=== PATIENT | male | born 1970 | race Caucasian/White ===

== ENCOUNTER → 2017-03-04 | Outpatient (REF) | payer BC ==
[2017-03-04 11:23] LABS: CHOLESTEROL LEVEL 231 MG/DL (<200); GLUCOSE, FASTING 108 MG/DL (70-105); TRIGLYCERIDES LEVEL 172 MG/DL (<150)
== END ==
LOC: M SFHCPLAZ 09:02
DX: Z13.1 Encounter for screening for diabetes mellitus (principal); Z13.220 Encounter for screening for lipoid disorders
CPT/HCPCS: 82947

== ENCOUNTER → 2017-03-11 | Outpatient (REF) | payer BC ==
[2017-03-11 12:18] LABS: ESTIMATED AVERAGE GLUCOSE 117 MG/DL (60-110); HEMOGLOBIN A1c 5.7 %
[2017-03-11 12:39] LABS: ALBUMIN 3.8 GM/DL (3.2-5.2); ALBUMIN/GLOBULIN RATIO 1.12 (1.00-1.93); ALKALINE PHOSPHATASE 87 U/L (45-117); ALT/SGPT 59 U/L (12-78); AST/SGOT 27 U/L (7-37); BILIRUBIN,DIRECT 0.1 MG/DL (0.0-0.2); BILIRUBIN,TOTAL 0.6 MG/DL (0.2-1.0); TOTAL PROTEIN 7.2 GM/DL (6.4-8.2)
== END ==
LOC: M SFHCPLAZ 09:07
DX: R73.01 Impaired fasting glucose (principal); E78.2 Mixed hyperlipidemia
CPT/HCPCS: 80076

== ENCOUNTER 2017-03-22 13:31 | Emergency (ER) | payer BC ==
[2017-03-22 16:55] LABS: BASO # 0.1 10^3/uL (0.0-0.2); BASO % 0.7 % (0.0-1.0); EOS # 0.4 10^3/uL (0.0-0.50); HEMATOCRIT 45.7 % (42.0-52.0); HEMOGLOBIN 15.9 g/dl (14.0-18.0); IMMATURE GRANULOCYTE % 0.2 % (0-0); LYMPH # 2.4 10^3/uL (1.5-4.5); LYMPH % 27.3 % (24.0-44.0); MEAN CORPUSCULAR HEMOGLOBIN 30.2 pg (27.0-33.0); MEAN CORPUSCULAR HGB CONC 34.8 g/dl (32.0-36.5); MEAN CORPUSCULAR VOLUME 86.7 fl (80.0-96.0); MONO # 0.7 10^3/uL (0.0-0.8); MONO % 7.8 % (0.0-5.0); NEUTROPHILS # 5.1 10^3/uL (1.8-7.7); PLATELET COUNT, AUTOMATED 272 10^3/uL (150-450); RED BLOOD COUNT 5.27 10^6/uL (4.30-6.10); RED CELL DISTRIBUTION WIDTH 12.1 % (11.5-14.5); WHITE BLOOD COUNT 8.6 10^3/uL (4.0-10.0)
[2017-03-22] MEDS: NS 1,000 ML IV (17:00)
[2017-03-22] MEDS: ONDANSETRON 4MG/2ML VIAL (J2405) IV (17:01)
[2017-03-22] MEDS: MORPHINE 4 MG/ML 1ML SYRINGE IV (17:01)
[2017-03-22 17:13] LABS: KETONE, URINE AUTO RFX NEGATIVE (NEGATIVE); LEUKOCYTE ESTERASE UR AUTO RFX NEGATIVE (NEGATIVE); NITRITE, URINE AUTO RFX NEGATIVE (NEGATIVE); RBC, URINE AUTO RFX TNTC /HPF (0-3); SQUAM EPITHELIAL CELL UR AURFX 0 /HPF (0-6); WBC, URINE AUTO RFX 2 /HPF (0-3)
[2017-03-22 17:21] LABS: ALBUMIN 4.2 GM/DL (3.2-5.2); ALBUMIN/GLOBULIN RATIO 1.31 (1.00-1.93); ALKALINE PHOSPHATASE 91 U/L (45-117); ALT/SGPT 61 U/L (12-78); ANION GAP 5 MEQ/L (8-16); AST/SGOT 26 U/L (7-37); BILIRUBIN,DIRECT 0.1 MG/DL (0.0-0.2); BILIRUBIN,TOTAL 0.5 MG/DL (0.2-1.0); BLOOD UREA NITROGEN 17 MG/DL (7-18); CALCIUM LEVEL 9.1 MG/DL (8.5-10.1); CARBON DIOXIDE LEVEL 29 MEQ/L (21-32); CHLORIDE LEVEL 104 MEQ/L (98-107); CREATININE FOR GFR 0.91 MG/DL (0.70-1.30); GLOMERULAR FILTRATION RATE > 60.0 (>60); GLUCOSE, FASTING 105 MG/DL (70-105); LIPASE 212 U/L (73-393); POTASSIUM SERUM 4.6 MEQ/L (3.5-5.1); SODIUM LEVEL 138 MEQ/L (136-145); TOTAL PROTEIN 7.4 GM/DL (6.4-8.2)
== END 2017-03-22 18:00 | disposition home or self-care (01) ==
LOC: M ED 13:31
DX: N20.0 Calculus of kidney (principal); R31.9 Hematuria, unspecified; F17.210 Nicotine dependence, cigarettes, uncomplicated; Z87.442 Personal history of urinary calculi
CPT/HCPCS: J2405

== ENCOUNTER → 2017-04-30 | Outpatient (REF) | payer BC ==
[2017-04-30 14:08] LABS: APPEARANCE, URINE CLEAR (CLEAR); BACTERIA, URINE AUTO NEGATIVE (NEGATIVE); BILIRUBIN, URINE AUTO NEGATIVE (NEGATIVE); BLOOD, URINE BLOOD 1+ (NEGATIVE); COLOR, URINE YELLOW (YELLOW); GLUCOSE, URINE (UA) AUTO 1+ mg/dL (NEGATIVE); KETONE, URINE AUTO NEGATIVE (NEGATIVE); LEUKOCYTE ESTERASE, URINE AUTO NEGATIVE (NEGATIVE); MUCUS, URINE SMALL (NEGATIVE); NITRITE, URINE AUTO NEGATIVE (NEGATIVE); PROTEIN, URINE AUTO NEGATIVE (NEGATIVE); RBC, URINE AUTO 1 /HPF (0-3); SPECIFIC GRAVITY URINE AUTO 1.025 (1.002-1.035); SQUAMOUS EPITHELIAL CELL UR AU 0 /HPF (0-6); UROBILINOGEN, URINE AUTO 0.2 mg/dL (0.0-2.0); WBC, URINE AUTO 0 /HPF (0-3)
== END ==
LOC: M SMT 13:02
DX: N20.0 Calculus of kidney (principal)
CPT/HCPCS: 81001

== ENCOUNTER → 2017-05-14 | Outpatient (CLI) | payer BC ==
[~2017-05-14] MED LIST: ISOVUE-370 76% 100ML VIAL (Q9967) As Ordered
== END ==
LOC: M RAD 10:48
DX: R31.9 Hematuria, unspecified (principal)

== ENCOUNTER → 2017-05-17 | Outpatient (REF) | payer BC ==
[2017-05-17 12:25] LABS: CHOLESTEROL LEVEL 147 MG/DL (<200); CHOLESTEROL RISK RATIO 3.972 (<5); HDL CHOLESTEROL 37 MG/DL (>40); LDL CHOLESTEROL 73.6 MG/DL (<100); NON-HDL-C 110 MG/DL; TRIGLYCERIDES LEVEL 182 MG/DL (<150)
== END ==
LOC: M SFHCPLAZ 08:37
DX: E78.2 Mixed hyperlipidemia (principal)
CPT/HCPCS: 80061

== ENCOUNTER → 2018-04-06 | Outpatient (REF) | payer BC ==
[~2018-04-06] MED LIST changes: -ISOVUE-370 76% 100ML VIAL (Q9967) As Ordered; +PERC5TAB12 PO
== END ==
LOC: M SFHCPLAZ 08:56
PROVIDERS: ATTEND Family Medicine
DX: M79.605 Pain in left leg (principal)

== ENCOUNTER → 2018-05-11 | Outpatient (REF) | payer BC ==
[2018-05-11 12:30] LABS: ALT/SGPT 40 U/L (12-78); BILIRUBIN,TOTAL 0.6 MG/DL (0.2-1.0); BLOOD UREA NITROGEN 16 MG/DL (7-18); CALCIUM LEVEL 8.9 MG/DL (8.5-10.1); CARBON DIOXIDE LEVEL 26 MEQ/L (21-32); CHLORIDE LEVEL 106 MEQ/L (98-107); CHOLESTEROL LEVEL 154 MG/DL (<200); CREATININE FOR GFR 0.95 MG/DL (0.70-1.30); GLOMERULAR FILTRATION RATE > 60.0 (>60); GLUCOSE, FASTING 113 MG/DL (70-100); HDL CHOLESTEROL 35 MG/DL (>40); LDL CHOLESTEROL 78 MG/DL (<100); NON-HDL-C 119 MG/DL; POTASSIUM SERUM 4.1 MEQ/L (3.5-5.1); SODIUM LEVEL 139 MEQ/L (136-145); TOTAL PROTEIN 6.8 GM/DL (6.4-8.2); TRIGLYCERIDES LEVEL 203 MG/DL (<150); VITAMIN B12 LEVEL 762 PG/ML (247-911)
[2018-05-11 13:21] LABS: HEMOGLOBIN A1c 5.8 %
== END ==
LOC: M SFHCPLAZ 08:55
PROVIDERS: ATTEND Family Medicine
DX: G25.2 Other specified forms of tremor (principal); R73.03 Prediabetes; E78.2 Mixed hyperlipidemia

== ENCOUNTER → 2018-05-25 | Outpatient (REF) | payer BC ==
[2018-05-27 14:44] LABS: CERULOPLASMIN 30.1 mg/dL (16.0-31.0)
== END ==
LOC: M SFHCPLAZ 14:42
PROVIDERS: ATTEND Family Medicine
DX: G25.2 Other specified forms of tremor (principal)

== ENCOUNTER → 2018-09-21 | Outpatient (REF) | payer BC ==
[2018-09-21 16:11] LABS: BASO # 0.1 10^3/uL (0.0-0.2); BASO % 0.8 % (0.0-1.0); EOS # 0.5 10^3/uL (0.0-0.50); EOS % 5.8 % (0.0-3.0); HEMATOCRIT 47.3 % (42.0-52.0); HEMOGLOBIN 16.2 g/dl (13.5-17.5); LYMPH # 2.8 10^3/uL (1.5-4.5); LYMPH % 35.3 % (24.0-44.0); MEAN CORPUSCULAR HEMOGLOBIN 29.8 pg (27.0-33.0); MEAN CORPUSCULAR HGB CONC 34.2 g/dl (32.0-36.5); MEAN CORPUSCULAR VOLUME 87.1 fl (80.0-96.0); MONO # 0.7 10^3/uL (0.0-0.8); MONO % 8.4 % (0.0-5.0); NEUTROPHILS # 3.9 10^3/uL (1.8-7.7); NEUTROPHILS % 49.4 % (36.0-66.0); PLATELET COUNT, AUTOMATED 279 10^3/uL (150-450); RED BLOOD COUNT 5.43 10^6/uL (4.30-6.10); WHITE BLOOD COUNT 7.9 10^3/uL (4.0-10.0)
[2018-09-21 16:18] LABS: APPEARANCE, URINE HAZY (CLEAR); BACTERIA, URINE AUTO 1+ (NEGATIVE); BILIRUBIN, URINE AUTO NEGATIVE (NEGATIVE); BLOOD, URINE BLOOD 1+ (NEGATIVE); COLOR, URINE YELLOW (YELLOW); GLUCOSE, URINE (UA) AUTO NEGATIVE (NEGATIVE); KETONE, URINE AUTO NEGATIVE (NEGATIVE); LEUKOCYTE ESTERASE, URINE AUTO NEGATIVE (NEGATIVE); MUCUS, URINE SMALL (NEGATIVE); NITRITE, URINE AUTO NEGATIVE (NEGATIVE); PROTEIN, URINE AUTO NEGATIVE (NEGATIVE); RBC, URINE AUTO 4 /HPF (0-3); SPECIFIC GRAVITY URINE AUTO 1.024 (1.002-1.035); SQUAMOUS EPITHELIAL CELL UR AU 0 /HPF (0-6); UROBILINOGEN, URINE AUTO 0.2 mg/dL (0.0-2.0); WBC, URINE AUTO 1 /HPF (0-3)
[2018-09-21 16:45] LABS: ALBUMIN 4.1 GM/DL (3.2-5.2); ALT/SGPT 44 U/L (12-78); BILIRUBIN,TOTAL 0.7 MG/DL (0.2-1.0); BLOOD UREA NITROGEN 15 MG/DL (7-18); CALCIUM LEVEL 9.1 MG/DL (8.5-10.1); CARBON DIOXIDE LEVEL 30 MEQ/L (21-32); CHLORIDE LEVEL 105 MEQ/L (98-107); CREATININE FOR GFR 1.13 MG/DL (0.70-1.30); GLOMERULAR FILTRATION RATE > 60.0 (>60); GLUCOSE, FASTING 96 MG/DL (70-100); POTASSIUM SERUM 4.2 MEQ/L (3.5-5.1); SODIUM LEVEL 139 MEQ/L (136-145); TOTAL PROTEIN 7.4 GM/DL (6.4-8.2)
== END ==
LOC: M SFHCPLAZ 13:53
PROVIDERS: ATTEND Family Medicine
DX: R10.31 Right lower quadrant pain (principal)

== ENCOUNTER → 2018-10-04 | Outpatient (CLI) | payer BC ==
[~2018-10-04] MED LIST changes: +GASTROGRAFIN SOLUTION 30ML (Q9963) As Ordered ONE; +ISOVUE-370 76% 100ML VIAL (Q9967) As Ordered ONE
--- NOTE | 2018-10-04 16:51 | REP ---
Clinical: Right lower quadrant pain. Technique: Axial contrast enhanced images from the lung bases to the pubic symphysis using oral (per protocol) and 100 ml Isovue 370 intravenous contrast material with coronal and sagittal re-formations. Comparison: 05/14/2017. Findings: Lung bases are clear. Visualized heart and pericardium normal. Diffuse fatty infiltration to the liver noted without focal hepatic lesion. Spleen, pancreas, gallbladder, bilateral adrenal glands and kidneys are normal. The enteric system is without obstruction or acute inflammatory process. Normal terminal ileum, cecum and appendix are identified in the right lower quadrant. Few scattered proximal sigmoid diverticula noted without acute diverticulitis. Pelvis demonstrates normal bladder and age appropriate prostate/seminal vesicles. No ascites. No free air. No intraperitoneal or retroperitoneal adenopathy. Abdominal aorta without aneurysm or dissection. Musculoskeletal structures demonstrate degenerative changes to the lower lumbar spine and bilateral hips. Impression: 1. Hepatic steatosis. 2. Few sigmoid diverticula without acute diverticulitis. 3. Normal right lower quadrant and specifically normal appendix. 4. No acute abdominopelvic pathology appreciated. No ascites. No focal inflammatory stranding. No adenopathy. Electronically Signed by Doc Connell MD 10/04/2018 04:43 P
== END ==
LOC: M RAD 14:37
PROVIDERS: ATTEND Family Medicine
DX: R10.31 Right lower quadrant pain (principal)

== ENCOUNTER → 2018-10-19 | Outpatient (REF) | payer BC ==
[~2018-10-19] MED LIST changes: -GASTROGRAFIN SOLUTION 30ML (Q9963) As Ordered ONE; -ISOVUE-370 76% 100ML VIAL (Q9967) As Ordered ONE
[2018-10-19 16:35] LABS: APPEARANCE, URINE CLEAR (CLEAR); BACTERIA, URINE AUTO NEGATIVE (NEGATIVE); BILIRUBIN, URINE AUTO NEGATIVE (NEGATIVE); BLOOD, URINE BLOOD 1+ (NEGATIVE); COLOR, URINE YELLOW (YELLOW); GLUCOSE, URINE (UA) AUTO NEGATIVE (NEGATIVE); KETONE, URINE AUTO NEGATIVE (NEGATIVE); LEUKOCYTE ESTERASE, URINE AUTO NEGATIVE (NEGATIVE); MUCUS, URINE SMALL (NEGATIVE); NITRITE, URINE AUTO NEGATIVE (NEGATIVE); PROTEIN, URINE AUTO NEGATIVE (NEGATIVE); RBC, URINE AUTO 6 /HPF (0-3); SPECIFIC GRAVITY URINE AUTO 1.024 (1.002-1.035); SQUAMOUS EPITHELIAL CELL UR AU 0 /HPF (0-6); UROBILINOGEN, URINE AUTO 0.2 mg/dL (0.0-2.0); WBC, URINE AUTO 1 /HPF (0-3)
== END ==
LOC: M SFHCPLAZ 14:26
PROVIDERS: ATTEND Family Medicine
DX: R31.29 Other microscopic hematuria (principal)

== ENCOUNTER → 2018-10-24 | Outpatient (CLI) | payer BC ==
--- NOTE | 2018-10-24 17:43 | REP ---
REASON: Assess inguinal canal area for inguinal hernia. The patient has right groin pain. Multiple ultrasonographic images of the right inguinal region shows no cystic or solid masses. There is no evidence of a bowel containing indirect or direct inguinal hernia. Electronically Signed by Jewel Collins DO 10/25/2018 11:22 A
--- NOTE | 2018-10-24 17:44 | REP ---
REASON: Right sided scrotal pain. PRIORS: None. Right testicle measures 4.5 x 1.8 x 3.2 cm and the left measures 4.4 x 2.3 x 3.3 cm. The testicular parenchymal echo pattern and vascular pattern is within normal limits bilaterally. There is no evidence of a spermatocele or hydrocele. The right testicular RI is 0.41 and the left is 0.41. IMPRESSION: Testicular ultrasound is within normal limits. Electronically Signed by Jewel Collins DO 10/25/2018 11:22 A
== END ==
LOC: M RAD 09:42
PROVIDERS: ATTEND Family Medicine
DX: N50.811 Right testicular pain (principal)

== ENCOUNTER 2018-11-11 13:30 | Emergency (ER) | payer BC ==
[~2018-11-11] VITALS: Ht 172.7 cm; Wt 121.9 kg
[2018-11-11 14:03] LABS: VENOUS BASE EXCESS 1.1 (-2.0-2.0); VENOUS HCO3 25.7 MEQ/L (23.0-27.0); VENOUS PARTIAL PRESSURE CO2 40.7 mmHg (38.0-50.0); VENOUS PH 7.418 UNITS (7.330-7.430); VENOUS STANDARD HCO3 24.8 MEQ/L; VENOUS TOTAL CO2 26.9 MEQ/L (24.0-28.0)
[2018-11-11 14:09] LABS: BASO # 0.1 10^3/uL (0.0-0.2); BASO % 0.5 % (0.0-1.0); EOS # 0.1 10^3/uL (0.0-0.5); EOS % 0.5 % (0.0-3.0); HEMATOCRIT 47.1 % (42.0-52.0); HEMOGLOBIN 16.6 g/dl (13.5-17.5); LYMPH # 1.6 10^3/uL (1.5-5.0); LYMPH % 10.4 % (24.0-44.0); MEAN CORPUSCULAR HEMOGLOBIN 31.1 pg (27.0-33.0); MEAN CORPUSCULAR HGB CONC 35.2 g/dl (32.0-36.5); MEAN CORPUSCULAR VOLUME 88.2 fl (80.0-96.0); MONO # 1.5 10^3/uL (0.0-0.8); MONO % 9.9 % (0.0-5.0); NEUTROPHILS # 11.8 10^3/uL (1.5-8.5); NEUTROPHILS % 78.2 % (36.0-66.0); PLATELET COUNT, AUTOMATED 215 10^3/uL (150-450); RED BLOOD COUNT 5.34 10^6/uL (4.30-6.10); WHITE BLOOD COUNT 15.1 10^3/uL (4.0-10.0)
[2018-11-11 14:10] VITALS: BP 134/73
[2018-11-11] MEDS ORDERED: ACET-683 PO (14:10)
[2018-11-11 14:20] LABS: INR 1.08; PROTHROMBIN TIME 13.7 SECONDS (11.8-14.0)
[2018-11-11 14:21] LABS: PARTIAL THROMBOPLASTIN TIME 33.2 SECONDS (25.0-38.4)
[2018-11-11] MEDS ORDERED: IBUPROFEN 800 MG TAB PO ONE (14:30)
[2018-11-11 14:36] LABS: ALT/SGPT 53 U/L (12-78); AMYLASE 38 U/L (25-115); BILIRUBIN,DIRECT 0.3 MG/DL (0.0-0.2); BILIRUBIN,TOTAL 1.1 MG/DL (0.2-1.0); BLOOD UREA NITROGEN 14 MG/DL (7-18); CALCIUM LEVEL 9.3 MG/DL (8.5-10.1); CARBON DIOXIDE LEVEL 25 MEQ/L (21-32); CHLORIDE LEVEL 103 MEQ/L (98-107); CK-MB VALUE MASS < 1.0 NG/ML (<3.6); CPK CREATINE PHOSPHOKINASE 61 U/L (39-308); CREATININE FOR GFR 1.26 MG/DL (0.70-1.30); GLOMERULAR FILTRATION RATE > 60.0 (>60); GLUCOSE, FASTING 127 MG/DL (70-100); MB/CK RELATIVE INDEX 1.64 (< OR =4); POTASSIUM SERUM 3.9 MEQ/L (3.5-5.1); SODIUM LEVEL 136 MEQ/L (136-145); TOTAL PROTEIN 7.5 GM/DL (6.4-8.2); TROPONIN I < 0.02 NG/ML (< 0.10)
--- NOTE | 2018-11-11 14:47 | REP ---
CHEST SINGLE VIEW: There is no evidence of acute infiltrate. No pleural effusion is seen. The heart is normal in size. The mediastinal silhouette is unremarkable. The visualized osseous structures are intact. IMPRESSION: No acute pulmonary disease. Electronically Signed by Lewis Muniz MD 11/11/2018 04:35 P
[2018-11-11 15:29] LABS: INFLUENZA A AMPLIFICATION NEGATIVE (NEGATIVE); INFLUENZA B AMPLIFICATION NEGATIVE (NEGATIVE)
[2018-11-11 16:09] LABS: APPEARANCE, URINE HAZY (CLEAR); BACTERIA, URINE AUTO NEGATIVE (NEGATIVE); BILIRUBIN, URINE AUTO NEGATIVE (NEGATIVE); BLOOD, URINE BLOOD 2+ (NEGATIVE); COLOR, URINE AMBER (YELLOW); GLUCOSE, URINE (UA) AUTO NEGATIVE (NEGATIVE); KETONE, URINE AUTO NEGATIVE (NEGATIVE); LEUKOCYTE ESTERASE, URINE AUTO NEGATIVE (NEGATIVE); MUCUS, URINE MODERATE (NEGATIVE); NITRITE, URINE AUTO NEGATIVE (NEGATIVE); PROTEIN, URINE AUTO 2+ mg/dL (NEGATIVE); RBC, URINE AUTO 8 /HPF (0-3); SPECIFIC GRAVITY URINE AUTO 1.026 (1.002-1.035); SQUAMOUS EPITHELIAL CELL UR AU 0 /HPF (0-6); WBC, URINE AUTO 1 /HPF (0-3)
--- NOTE | 2018-11-11 16:36 | REP ---
CT CHEST WITHOUT IV CONTRAST: CT chest performed without IV contrast. Sagittal and coronal reconstruction images are performed. There is focal dense infiltrate in the superior segment of the left lower lobe behind the left hilum with air bronchograms. The right lung is clear. Heart is normal in size. There is no pleural or pericardial effusion. No gross mediastinal or axillary adenopathy is seen. There is no evidence of dilatation of descending thoracic aorta. However, the ascending thoracic aorta is mildly dilated at 4.2 cm. Heart is not enlarged. There is diffuse fatty infiltration of the liver. There are degenerative changes of the spine. IMPRESSION: Focal dense infiltrate superior segment left lower lobe behind the left hilum. Mild dilatation of the ascending thoracic aorta at 4.2 cm in maximum AP diameter. Diffuse fatty infiltration of the liver. Electronically Signed by Lewis Muniz MD 11/11/2018 04:38 P
[2018-11-11] MEDS ORDERED: LEVA750T7 PO (17:37)
[2018-11-11] MEDS ORDERED: LevoFLOXacin 750 MG TABLET PO ONE (17:45)
--- NOTE | 2018-11-11 19:31 | ECGEPIP ---
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
--- NOTE | 2018-11-13 12:58 | ED PDOC ---
Post-Departure Follow-Up dr newton and dr oliver faxed formal report of ct chest for fu Poly Campbell MD Nov 13, 2018 12:58
== END 2018-11-11 18:10 | disposition home or self-care (01) ==
LOC: M ED 13:30
DX: J18.9 Pneumonia, unspecified organism (principal); I71.1 Thoracic aortic aneurysm, ruptured; R50.9 Fever, unspecified; Z87.442 Personal history of urinary calculi; Z79.899 Other long term (current) drug therapy

== ENCOUNTER → 2018-12-09 | Outpatient (CLI) | payer BC ==
[~2018-12-09] MED LIST changes: +ACET-683 PO; +LEVA750T7 PO
--- NOTE | 2018-12-09 12:23 | REP ---
REASON FOR EXAM: History of pneumonia. COMPARISON: Multiple, the latest 08/14/2018 a portable exam. FINDINGS: The superior mediastinal structures are midline. The cardiac silhouette is unremarkable in size, shape, and position. The diaphragmatic surfaces of the lungs are regular, and the costophrenic angles are clear. The pulmonary collins are clear. The imaged osseous structures are intact. IMPRESSION: There is no acute cardiopulmonary disease. Electronically Signed by Jewel Collins DO 12/09/2018 02:03 P
[2018-12-09 13:36] LABS: BASO # 0.1 10^3/uL (0.0-0.2); BASO % 0.8 % (0.0-1.0); EOS # 0.8 10^3/uL (0.0-0.5); EOS % 10.5 % (0.0-3.0); HEMOGLOBIN 15.9 g/dl (13.5-17.5); LYMPH # 2.5 10^3/uL (1.5-5.0); LYMPH % 34.7 % (24.0-44.0); MEAN CORPUSCULAR HEMOGLOBIN 30.3 pg (27.0-33.0); MEAN CORPUSCULAR HGB CONC 33.8 g/dl (32.0-36.5); MEAN CORPUSCULAR VOLUME 89.5 fl (80.0-96.0); MONO # 0.5 10^3/uL (0.0-0.8); MONO % 7.4 % (0.0-5.0); NEUTROPHILS # 3.4 10^3/uL (1.5-8.5); NEUTROPHILS % 46.2 % (36.0-66.0); PLATELET COUNT, AUTOMATED 270 10^3/uL (150-450); RED BLOOD COUNT 5.25 10^6/uL (4.30-6.10); WHITE BLOOD COUNT 7.3 10^3/uL (4.0-10.0)
== END ==
LOC: M SMT 09:46
PROVIDERS: ATTEND Family Medicine
DX: D72.829 Elevated white blood cell count, unspecified (principal); J18.1 Lobar pneumonia, unspecified organism

== ENCOUNTER 2019-01-04 11:14 | Day surgery (SDC) | payer BC ==
[~2019-01-04] VITALS: Ht 175.3 cm; Wt 121.1 kg
[~2019-01-04 11:14] MED LIST changes: +NS 1,000 ML IV SCH
[2019-01-04] MEDS ORDERED: LIDOCAINE 2% INJ 100 MG/5 ML SDV (FOR ANES.) As Ordered ONE (11:51)
[2019-01-04] MEDS ORDERED: PROPOFOL 200 MG/20 ML VIAL As Ordered ONE (11:51)
--- NOTE | 2019-01-04 13:06 | ROOR ---
Patient Name: Leonard Savage Procedure Date: 01/04/2019 12:45 PM Date of : 1970 Age: 48 Room: [facility] Gender: Male Note Status: Finalized Procedure: Total Colonoscopy to Cecum Indications: Last colonoscopy 10 years ago, Abdominal pain in the right lower quadrant Providers: Raulito Correa MD Referring MD: Ailyn Grijalva MD Requesting Provider: Medicines: Monitored Anesthesia Care Complications: No immediate complications. Procedure: Pre-Anesthesia Assessment: - The heart rate, respiratory rate, oxygen saturations, blood pressure, adequacy of pulmonary ventilation, and response to care were monitored throughout the procedure. The Colonoscope was introduced through the anus and advanced to the cecum, identified by appendiceal orifice and ileocecal valve. The colonoscopy was performed without difficulty. The patient tolerated the procedure well. The quality of the bowel preparation was excellent. Findings: The perianal and digital rectal examinations were normal. Non-bleeding internal hemorrhoids were found during retroflexion. The hemorrhoids were small and Grade I (internal hemorrhoids that do not prolapse). No other significant abnormalities were identified in a careful examination of the remainder of the colon. The exam was otherwise without abnormality. Impression: - Non-bleeding internal hemorrhoids. - The examination was otherwise normal. - No specimens collected. - The exam was otherwise normal to the cecum. Recommendation: - Patient has a contact number available for emergencies. The signs and symptoms of potential delayed complications were discussed with the patient. Return to normal activities tomorrow. Written discharge instructions were provided to the patient. - High fiber diet. - Discharge patient to home. - Continue present medications. - Repeat colonoscopy in 10 years for screening purposes. - Return to referring physician. - The findings and recommendations were discussed with the patient's family. Raulito Correa MD Raulito Correa MD 01/04/2019 1:05:47 PM Electronically signed by Raulito Correa MD Number of Addenda: 0 Note Initiated On: 01/04/2019 12:45 PM Estimated Blood Loss: Estimated blood loss: none.
[2019-01-04 13:30] VITALS: BP 155/97
== END 2019-01-04 13:53 | disposition home or self-care (01) ==
LOC: M OPP 11:14
PROVIDERS: ATTEND Internal Medicine Gastroenterology
DX: K64.0 First degree hemorrhoids (principal); R10.31 Right lower quadrant pain; F17.210 Nicotine dependence, cigarettes, uncomplicated

== ENCOUNTER → 2019-02-08 | Outpatient (REF) | payer BC ==
[~2019-02-08] MED LIST changes: -NS 1,000 ML IV SCH
== END ==
LOC: M SFHCPLAZ 13:25
PROVIDERS: ATTEND Family Medicine
DX: L82.1 Other seborrheic keratosis (principal)

== ENCOUNTER 2019-10-31 13:32 | Emergency (ER) | payer BC ==
[~2019-10-31] VITALS: Ht 175.3 cm; Wt 120.9 kg
[2019-10-31] MEDS ORDERED: GI COCKTAIL 50ML BTL(HYOSCYAMINE/MAALOX/LIDOCAINE VISCOUS)(1:3:1) PO ONE (14:30)
[2019-10-31 14:38] LABS: BASO # 0.1 10^3/uL (0.0-0.2); BASO % 0.8 % (0.0-1.0); EOS # 0.4 10^3/uL (0.0-0.5); EOS % 6.2 % (0.0-3.0); HEMATOCRIT 45.8 % (42.0-52.0); HEMOGLOBIN 16.3 g/dl (13.5-17.5); LYMPH # 1.8 10^3/uL (1.5-5.0); LYMPH % 25.4 % (24.0-44.0); MEAN CORPUSCULAR HEMOGLOBIN 30.9 pg (27.0-33.0); MEAN CORPUSCULAR HGB CONC 35.6 g/dl (32.0-36.5); MEAN CORPUSCULAR VOLUME 86.7 fl (80.0-96.0); MONO # 0.5 10^3/uL (0.0-0.8); MONO % 7.6 % (0.0-5.0); NEUTROPHILS # 4.2 10^3/uL (1.5-8.5); NEUTROPHILS % 59.7 % (36.0-66.0); PLATELET COUNT, AUTOMATED 262 10^3/uL (150-450); RED BLOOD COUNT 5.28 10^6/uL (4.30-6.10); WHITE BLOOD COUNT 7.1 10^3/uL (4.0-10.0)
[2019-10-31 14:41] LABS: PROTHROMBIN TIME 13.4 SECONDS (11.8-14.0)
--- NOTE | 2019-10-31 14:42 | REPVR ---
PROCEDURE INFORMATION: Exam: XR Chest, 1 View Exam date and time: 10/31/2019 2:17 PM Age: 49 years old Clinical indication: Dyspnea; Additional info: Chest pain TECHNIQUE: Imaging protocol: XR of the chest Views: 1 view. COMPARISON: CR CHEST 2 VIEWS 12/09/2018 9:56 AM FINDINGS: Lungs: The lungs appear clear. Pleural space: There is no evidence of pneumothorax or pleural effusion. Heart/Mediastinum: The heart is top-normal in size. Bones/joints: There is osteophyte formation along the lateral margins of the thoracic vertebra IMPRESSION: Clear appearing lungs. Electronically signed by: Dequan Zamora On 10/31/2019 14:42:44 PM
[2019-10-31 15:06] LABS: BLOOD UREA NITROGEN 14 MG/DL (7-18); CALCIUM LEVEL 9.2 MG/DL (8.5-10.1); CARBON DIOXIDE LEVEL 29 MEQ/L (21-32); CHLORIDE LEVEL 106 MEQ/L (98-107); CK-MB VALUE MASS < 1.0 NG/ML (<3.6); CPK CREATINE PHOSPHOKINASE 70 U/L (39-308); CREATININE FOR GFR 0.99 MG/DL (0.70-1.30); GLOMERULAR FILTRATION RATE > 60.0 (>60); GLUCOSE, FASTING 90 MG/DL (70-100); MB/CK RELATIVE INDEX 1.43 (< OR =4); POTASSIUM SERUM 4.2 MEQ/L (3.5-5.1); SODIUM LEVEL 138 MEQ/L (136-145); TROPONIN I 0.25 NG/ML (< 0.10)
[2019-10-31] MEDS ORDERED: HEPARIN DRIP 25,000 UNITS in IV 1 EA IV SCH (16:38)
[2019-10-31] MEDS ORDERED: HEPARIN SOD (PORCINE) 5000UNITS/ML 1ML VIAL/SYRINGE IV ONE (16:45)
[2019-10-31] MEDS ORDERED: ASPIRIN 81 MG CHEW TABLET PO ONE (16:45)
[2019-10-31] MEDS ORDERED: METAL LOCK LOOP XX ONE (17:21)
[2019-10-31 18:00] VITALS: BP 148/90
--- NOTE | 2019-11-19 17:59 | ECGEPIP ---
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
== END 2019-10-31 18:18 | disposition short-term general hospital (02) ==
LOC: M ED 13:32
DX: I20.0 Unstable angina (principal); R11.2 Nausea with vomiting, unspecified
CPT/HCPCS: 71045; 80048; 82550; 82553; 84484; 85025; 85610; 93005; 93041; 94760; 96374; 99285; J1644

== ENCOUNTER → 2020-06-14 | Outpatient (REF) | payer BC ==
[2020-06-14 13:42] LABS: BLOOD UREA NITROGEN 21 MG/DL (7-18); CALCIUM LEVEL 9.2 MG/DL (8.5-10.1); CARBON DIOXIDE LEVEL 28 MEQ/L (21-32); CHLORIDE LEVEL 105 MEQ/L (98-107); CREATININE FOR GFR 0.84 MG/DL (0.70-1.30); GLOMERULAR FILTRATION RATE > 60.0 (>60); GLUCOSE, FASTING 97 MG/DL (70-100); POTASSIUM SERUM 4.5 MEQ/L (3.5-5.1); SODIUM LEVEL 137 MEQ/L (136-145)
== END ==
LOC: M PLALAB 11:22
PROVIDERS: ATTEND Family Medicine
DX: I25.10 Atherosclerotic heart disease of native coronary artery without angina pectoris (principal)

== ENCOUNTER → 2020-12-19 | Outpatient (CLI) | payer BC ==
[2020-12-19 10:42] LABS: BASO # 0.1 10^3/uL (0.0-0.2); BASO % 0.7 % (0.0-1.0); EOS # 0.2 10^3/uL (0.0-0.5); HEMATOCRIT 42.9 % (42.0-52.0); HEMOGLOBIN 14.5 g/dl (13.5-17.5); LYMPH # 1.7 10^3/uL (1.5-5.0); MEAN CORPUSCULAR HEMOGLOBIN 29.4 pg (27.0-33.0); MEAN CORPUSCULAR HGB CONC 33.8 g/dl (32.0-36.5); MEAN CORPUSCULAR VOLUME 86.8 fl (80.0-96.0); MONO # 0.7 10^3/uL (0.0-0.8); MONO % 8.6 % (2.0-8.0); NEUTROPHILS % 65.6 % (36.0-66.0); PLATELET COUNT, AUTOMATED 295 10^3/uL (150-450); RED BLOOD COUNT 4.94 10^6/uL (4.30-6.10); WHITE BLOOD COUNT 7.7 10^3/uL (4.0-10.0)
[2020-12-19 10:57] LABS: HEMOGLOBIN A1c 5.3 %
[2020-12-19 11:30] LABS: ALBUMIN 3.7 GM/DL (3.2-5.2); ALT/SGPT 24 U/L (12-78); BILIRUBIN,TOTAL 0.8 MG/DL (0.2-1.0); BLOOD UREA NITROGEN 17 MG/DL (7-18); CALCIUM LEVEL 9.5 MG/DL (8.5-10.1); CARBON DIOXIDE LEVEL 27 MEQ/L (21-32); CHLORIDE LEVEL 107 MEQ/L (98-107); CHOLESTEROL LEVEL 102 MG/DL (<200); CHOLESTEROL RISK RATIO 2.756 (<5); CREATININE FOR GFR 0.78 MG/DL (0.70-1.30); GLOMERULAR FILTRATION RATE > 60.0 (>60); GLUCOSE, FASTING 102 MG/DL (70-100); HDL CHOLESTEROL 37 MG/DL (>40); LDL CHOLESTEROL 44 MG/DL (<100); NON-HDL-C 65 MG/DL; POTASSIUM SERUM 3.9 MEQ/L (3.5-5.1); SODIUM LEVEL 139 MEQ/L (136-145); TRIGLYCERIDES LEVEL 105 MG/DL (<150)
[2020-12-19 11:44] LABS: ERYTHROCYTE SEDIMENTATION RATE 14 mm/hr (0-15)
== END ==
LOC: M PLALAB 08:34
PROVIDERS: ATTEND Family Medicine
DX: E78.2 Mixed hyperlipidemia (principal)

== ENCOUNTER → 2021-01-20 | Outpatient (CLI) | payer BC ==
--- NOTE | 2021-01-20 13:59 | REP ---
INDICATION: ABNORMAL WEIGHT LOSS COMPARISON: 10/31/2019 TECHNIQUE: PA and lateral. FINDINGS: The mediastinum and cardiac silhouette are normal. The lung collins are clear and without acute consolidation, effusion, or pneumothorax. The skeletal structures are intact and normal. IMPRESSION: No acute cardiopulmonary process. <Electronically signed by Doc Connell > 01/20/21 1475
[2021-01-20 16:33] LABS: APPEARANCE, URINE CLEAR (CLEAR); BACTERIA, URINE AUTO NEGATIVE (NEGATIVE); BILIRUBIN, URINE AUTO NEGATIVE (NEGATIVE); BLOOD, URINE BLOOD 2+ (NEGATIVE); CALCIUM OXALATE CRYSTALS SMALL; COLOR, URINE YELLOW (YELLOW); GLUCOSE, URINE (UA) AUTO NEGATIVE (NEGATIVE); KETONE, URINE AUTO TRACE mg/dL (NEGATIVE); LEUKOCYTE ESTERASE, URINE AUTO NEGATIVE (NEGATIVE); MUCUS, URINE SMALL (NEGATIVE); NITRITE, URINE AUTO NEGATIVE (NEGATIVE); PROTEIN, URINE AUTO NEGATIVE (NEGATIVE); RBC, URINE AUTO 3 /HPF (0-3); SPECIFIC GRAVITY URINE AUTO 1.029 (1.002-1.035); SQUAMOUS EPITHELIAL CELL UR AU 0 /HPF (0-6); UROBILINOGEN, URINE AUTO 0.2 mg/dL (0.0-2.0); WBC, URINE AUTO 1 /HPF (0-3)
== END ==
LOC: M PLAIMG 13:33
PROVIDERS: ATTEND Family Medicine
DX: R63.4 Abnormal weight loss (principal)

== ENCOUNTER → 2021-07-07 | Outpatient (CLI) | payer BC | LOC: M RAD 06:19 | PROVIDERS: ATTEND Family Medicine | DX: Z87.891 Personal history of nicotine dependence (principal) ==

== ENCOUNTER → 2022-08-06 | Outpatient (CLI) | payer BC | LOC: M RAD 08:45 | PROVIDERS: ATTEND Physician Assistant | DX: Z87.891 Personal history of nicotine dependence (principal) ==

== ENCOUNTER → 2023-04-08 | Outpatient (CLI) | payer BC ==
[2023-04-08 13:52] LABS: BASO # 0.1 10^3/uL (0.0-0.2); BASO % 0.9 % (0.0-1.0); EOS # 0.4 10^3/uL (0.0-0.5); EOS % 4.8 % (0.0-3.0); HEMATOCRIT 46.2 % (42.0-52.0); HEMOGLOBIN 15.6 g/dl (13.5-17.5); LYMPH # 2.4 10^3/uL (1.5-5.0); LYMPH % 30.6 % (24.0-44.0); MEAN CORPUSCULAR HEMOGLOBIN 29.7 pg (27.0-33.0); MEAN CORPUSCULAR HGB CONC 33.8 g/dl (32.0-36.5); MEAN CORPUSCULAR VOLUME 87.8 fl (80.0-96.0); MONO # 0.6 10^3/uL (0.0-0.8); NEUTROPHILS # 4.4 10^3/uL (1.5-8.5); NEUTROPHILS % 55.6 % (36.0-66.0); PLATELET COUNT, AUTOMATED 308 10^3/uL (150-450); RED BLOOD COUNT 5.26 10^6/uL (4.30-6.10); WHITE BLOOD COUNT 7.8 10^3/uL (4.0-10.0)
[2023-04-08 14:04] LABS: HEMOGLOBIN A1c 5.6 % (4.0-6.0)
[2023-04-08 14:18] LABS: PSA SCREENING 0.56 NG/ML (< 4.00)
[2023-04-08 14:22] LABS: ALKALINE PHOSPHATASE 88 U/L (46-116); ALT/SGPT 32 U/L (7.0-40); AST/SGOT 14 U/L (<34); BILIRUBIN,TOTAL 0.5 MG/DL (0.3-1.2); BLOOD UREA NITROGEN 17 MG/DL (9-23); CALCIUM LEVEL 9.1 MG/DL (8.5-10.1); CARBON DIOXIDE LEVEL 30 MMOL/L (20-31); CHLORIDE LEVEL 108 MMOL/L (98-107); CHOLESTEROL LEVEL 115 MG/DL (<200); CHOLESTEROL RISK RATIO 3.16 (<5); CREATININE FOR GFR 0.83 MG/DL (0.70-1.30); FREE T4 1.11 NG/DL (0.89-1.76); GLOMERULAR FILTRATION RATE > 60.0 (>56); GLUCOSE, FASTING 87 MG/DL (60-100); HDL CHOLESTEROL 36.3 MG/DL (>40); LDL CHOLESTEROL 54.3 MG/DL (<100); NON-HDL-C 78.7 MG/DL; POTASSIUM SERUM 5.1 MMOL/L (3.5-5.1); SODIUM LEVEL 138 MMOL/L (136-145); TRIGLYCERIDES LEVEL 122 MG/DL (<150)
[2023-04-08 14:23] LABS: THYROID STIMULATING HORMONE 1.805 uIU/ML (0.55-4.78)
[2023-04-08 14:24] LABS: TOTAL 25(OH) VITAMIN D 16.7 NG/ML (20.0-100.0); VITAMIN B12 LEVEL 607 PG/ML (211-911)
[2023-04-09 15:07] LABS: LIPOPROTEIN (a) 28.9 nmol/L (<75.0)
== END ==
LOC: M PLALAB 11:10
PROVIDERS: ATTEND Internal Medicine Hematology
DX: I25.10 Atherosclerotic heart disease of native coronary artery without angina pectoris (principal)

== ENCOUNTER 2023-05-05 22:49 | Emergency (ER) | payer BC ==
[~2023-05-05] VITALS: Ht 172.7 cm; Wt 111.0 kg
[2023-05-06 00:28] LABS: HEMATOCRIT 42.3 % (42.0-52.0); HEMOGLOBIN 14.8 g/dl (13.5-17.5); MEAN CORPUSCULAR HEMOGLOBIN 29.5 pg (27.0-33.0); MEAN CORPUSCULAR VOLUME 84.3 fl (80.0-96.0); PLATELET COUNT, AUTOMATED 276 10^3/uL (150-450); RED BLOOD COUNT 5.02 10^6/uL (4.30-6.10); WHITE BLOOD COUNT 10.9 10^3/uL (4.0-10.0)
[2023-05-06] MEDS ORDERED: ONDANSETRON 4MG 2ML VIAL As Ordered ONE (00:30)
[2023-05-06] MEDS ORDERED: MORPHINE 4 MG/ML 1ML VIAL As Ordered ONE (00:30)
[2023-05-06] MEDS: ONDANSETRON 4MG 2ML VIAL IV ONE (00:37)
[2023-05-06] MEDS: MORPHINE 4 MG/ML 1ML VIAL IV ONE (00:38)
[2023-05-06] MEDS ORDERED: KETOROLAC 30 MG/ML 1ML VIAL As Ordered ONE (00:46)
[2023-05-06 00:53] LABS: APPEARANCE, URINE CLEAR (CLEAR); BACTERIA, URINE AUTO NEGATIVE (NEGATIVE); BILIRUBIN, URINE AUTO NEGATIVE (NEGATIVE); BLOOD, URINE BLOOD 1+ (NEGATIVE); COLOR, URINE YELLOW (YELLOW); GLUCOSE, URINE (UA) AUTO NEGATIVE (NEGATIVE); KETONE, URINE AUTO TRACE mg/dL (NEGATIVE); LEUKOCYTE ESTERASE, URINE AUTO NEGATIVE (NEGATIVE); MUCUS, URINE SMALL (NEGATIVE); NITRITE, URINE AUTO NEGATIVE (NEGATIVE); PROTEIN, URINE AUTO 1+ mg/dL (NEGATIVE); RBC, URINE AUTO 9 /HPF (0-3); SPECIFIC GRAVITY URINE AUTO 1.026 (1.002-1.035); SQUAMOUS EPITHELIAL CELL UR AU 0 /HPF (0-6); UROBILINOGEN, URINE AUTO 0.2 mg/dL (0.0-2.0); WBC, URINE AUTO 1 /HPF (0-3)
[2023-05-06 01:03] LABS: ALKALINE PHOSPHATASE 93 U/L (46-116); ALT/SGPT 33 U/L (7.0-40); AST/SGOT 20 U/L (<34); BILIRUBIN,TOTAL 0.5 MG/DL (0.3-1.2); BLOOD UREA NITROGEN 22 MG/DL (9-23); CALCIUM LEVEL 9.4 MG/DL (8.5-10.1); CARBON DIOXIDE LEVEL 26 MMOL/L (20-31); CHLORIDE LEVEL 105 MMOL/L (98-107); CREATININE FOR GFR 1.06 MG/DL (0.70-1.30); GLOMERULAR FILTRATION RATE > 60.0 (>56); GLUCOSE, FASTING 156 MG/DL (60-100); POTASSIUM SERUM 4.5 MMOL/L (3.5-5.1); SODIUM LEVEL 138 MMOL/L (136-145)
[2023-05-06] MEDS: KETOROLAC 30 MG/ML 1ML VIAL IV ONE (01:22)
[2023-05-06 02:21] LABS: CK-MB VALUE MASS < 1.0 NG/ML (<3.6)
[2023-05-06 02:22] LABS: CPK CREATINE PHOSPHOKINASE 54 U/L (46-171); MB/CK RELATIVE INDEX 1.85 (< OR =4)
[2023-05-06] MEDS ORDERED: FLOM0.4C39 PO (02:46)
[2023-05-06] MEDS ORDERED: ONDA4TAB6 PO (02:46)
[2023-05-06] MEDS ORDERED: KETO10TAB PO (02:46)
[2023-05-06] MEDS: TAMSULOSIN 0.4 MG CAP PO ONE (02:59)
[2023-05-06] MEDS: OXYCODONE/APAP 5MG/325MG(HOME DOSE PACK) PO ONE (03:00)
[2023-05-06 03:07] VITALS: BP 132/81; TEMP 98.8; O2SAT 96
== END 2023-05-06 03:05 | disposition home or self-care (01) ==
LOC: M ED 22:49
DX: N20.1 Calculus of ureter (principal); I25.119 Atherosclerotic heart disease of native coronary artery with unspecified angina pectoris; I25.2 Old myocardial infarction; F17.210 Nicotine dependence, cigarettes, uncomplicated; Z88.8 Allergy status to other drugs, medicaments and biological substances; Z88.2 Allergy status to sulfonamides; Z79.899 Other long term (current) drug therapy
CPT/HCPCS: 74176; 80053; 81001; 82550; 82553; 84484; 85027; 93005; 96374; 96375; 99284; J1885; J2405

== ENCOUNTER → 2023-11-29 | Outpatient (CLI) | payer BC ==
[~2023-11-29] MED LIST changes: +FLOM0.4C39 PO; +KETO10TAB PO; +ONDA-282 PO
== END ==
LOC: M RAD 14:33
PROVIDERS: ATTEND Internal Medicine Hematology
DX: Z87.891 Personal history of nicotine dependence (principal)

== ENCOUNTER → 2025-02-21 | Outpatient (CLI) | payer BC ==
[~2025-02-21] MED LIST changes: -FLOM0.4C39 PO; +TAMS-18 PO
[2025-02-21 11:55] LABS: PLATELET COUNT, AUTOMATED 329 10^3/uL (150-450)
[2025-02-21 12:13] LABS: ALT/SGPT 44 U/L (7.0-40); AST/SGOT 21 U/L (<34); CALCIUM LEVEL 9.4 MG/DL (8.5-10.1); CARBON DIOXIDE LEVEL 30 MMOL/L (20-31); CHLORIDE LEVEL 101 MMOL/L (98-107); CHOLESTEROL LEVEL 109 MG/DL (<200); CHOLESTEROL RISK RATIO 2.97 (<5); CREATININE FOR GFR 0.85 MG/DL (0.70-1.30); GLOMERULAR FILTRATION RATE > 90.0 (>56); LDL CHOLESTEROL 47.5 MG/DL (<100); NON-HDL-C 72.3 MG/DL; POTASSIUM SERUM 4.4 MMOL/L (3.5-5.1); SODIUM LEVEL 139 MMOL/L (136-145); TRIGLYCERIDES LEVEL 124 MG/DL (<150)
[2025-02-21 12:16] LABS: FREE T4 1.08 NG/DL (0.89-1.76)
[2025-02-21 13:13] LABS: ESTIMATED AVERAGE GLUCOSE 134.0 MG/DL (60-110)
== END ==
LOC: M PLALAB 09:19
PROVIDERS: ATTEND Family Medicine
DX: I25.10 Atherosclerotic heart disease of native coronary artery without angina pectoris (principal); E78.2 Mixed hyperlipidemia